=== PATIENT | male | born 1980 | race Caucasian/White ===

== ENCOUNTER 2018-04-04 11:47 | Emergency (ER) | payer MEDICARE, MEDICAID, SELFPAY ==
[2018-04-04 11:56] VITALS: BP 136/92; PULSE 72; RESP 16; TEMP 36.5; O2SAT 98; BMI 35.2
--- NOTE | 2018-04-04 12:20 | CT_ITS ---
CT head/brain wo con HISTORY: Fell this morning hit left side of for head on garbage can. Head pain.. Head injury. ITS.REASON: fall ORDERING PHYSICIAN: Butch Jimenes MD PATIENT AGE: 37 years COMPARISON: No previous studies. TECHNIQUE: Axial images obtained without contrast. Brain and bone windows reviewed. All CT scans at the facility use one or more dose reduction, viz: automated exposure control, ma/kV adjustment per patient size (including targeted exams where dose is matched to indication, i.e. head), or iterative reconstruction technique. FINDINGS: No acute intracranial findings. No midline shift, nor mass effect, . No intracranial hemorrhage, nor hydrocephalus, nor extra-axial fluid collection is evident. . Posterior fossa is unremarkable. . Soft tissue hematoma, swelling. Is seen at left supraorbital region, left forehead. Scant.Air within soft tissues laceration associated laceration occurring with this injury.. The underlying skull is intact. Supraorbital region and left frontal bone intact. Remainder the skull is intact. Unremarkable. The visualized paranasal sinuses are clear with no acute findings. Chronic or congenital wall thickening at the posterior left maxillary sinus noted.. Globes, visualized portions of orbits unremarkable The mastoid air cells are well-developed and clear. Middle ear clear. IACs symmetric & unremarkable. No mastoid effusion. -----IMPRESSION: No acute intracranial findings. Brain within normal limits. Soft tissue swelling and hematoma at the left supraorbital region noted.. Suspect minimal associated laceration Underlying skull intact
--- NOTE | 2018-04-04 12:20 | CT_ITS ---
CT cervical spine wo con Ordering Physician: Butch Jimenes MD Patient Age: 37 years: Male HISTORY: ITS.REASON: fallstruck head. Head and neck pain. TECHNIQUE: Helical CT scanning cervical spine. No IV contrast utilized. Axial sagittal and coronal reconstructions performed on CT workstation. All CT scans at this facility used one or more dose reduction techniques , viz: automatic exposure control, ma/Kv adjustment per patient's size, (including targeted exam where dose matched to the indication; i.e. head); or iterative reconstruction technique COMPARISON :None FINDINGS . No fracture nor subluxation evident Normal alignment on the sagittal images. Very mild Subtle dextrocurvature C-spine noted on coronal images however this may merely be positional as it was not seen on the hospitality ambassador view. Cervical spine appears intact with scant minor degenerative changes. Anterior marginal osteophytes at C4/5 most notable in this regard.Facets intact with normal relationships. Only question degenerative facet changes C6/7 and C7/T1 C1/C2 relationships appear normal. Dens Intact. . Prevertebral soft tissues satisfactory. Apices the lungs are clear. Scattered small to moderate reactive nodes throughout the neck. No significant adenopathy or masses. Thyroid gland slightly generous sized bilateral.. Left lobe measures 4.5 centimeters in length on coronal image 20. Apices the lungs are clear IMPRESSION: Cervical spine intact with no fracture nor subluxation Disc spaces well-maintained. Satisfactory alignment . Only trace scant early degenerative changes Early anterior marginal osteophyte C5-C6 noted in this regard. Generous, mildly prominent thyroid gland incidentally noted. Left lobe measures 4.5 cm length. Clinical correlation and follow-up will warranted.
--- NOTE | 2018-04-04 12:21 | [facility].EDFALL ---
ED Disposition Clinical Impression: Simple laceration of face, Penicillin allergy, DJD (degenerative joint disease) of cervical spine, Thyromegaly Disposition: Home, Self-Care Condition on Discharge: Fair Instructions: DI for Laceration Repair Additional Instructions: 1?keep the wound clean and dry. 2-apply daily Neosporin. 3-2 days wound check. 4-stitch removal in 7 days. 5-head injury instructions. 6-recommend outpatient thyroid evaluation for thyromegally. 7- Return as needed. Prescriptions: Sulfamethoxazole/Trimethoprim [Bactrim DS tablet] 1 tab PO BID #14 tab Referrals: Provider,Referral, [Primary Care Provider] - - Critical Care Critical Care Time: No Attestation: On 04/04/18, the high probability of a clinically significant, sudden or life threatening deterioration of the following system(s) required my full and direct attention, intervention and personal management. The time I documented below is in addition to time spent performing reported procedures but includes the following listed in this critical care notation. Medical Decision Making - Medical Records Medical records reviewed: Yes: I reviewed the patient's medical records. - Rodney Inquiry Pt receiving controlled substance: No Rodney was queried for this patient: No Vital Signs: 04/04/18 11:56 Temperature 97.7 F Temperature Source Oral Pulse Rate [Left Radial] 72 Respiratory Rate 16 Blood Pressure [Right Arm] 136/92 H Blood Pressure Mean [Right Arm] 106 Blood Pressure Source [Right Arm] Automatic Cuff Blood Pressure Position [Right Arm] Sitting 02 Sat by Pulse Oximetry 98 Oxygen Delivery Method Room Air - CT Data CT Scan: Head, C-Spine Time Received: 13:[address] Reviewed: Yes: I have viewed the radiologist's interpretation Preliminary Findings: Normal/NAD Findings Narrative: -----IMPRESSION: No acute intracranial findings. Brain within normal limits. Soft tissue swelling and hematoma at the left supraorbital region noted.. Suspect minimal associated laceration Underlying skull intact Fall HPI - General Chief Complaint: Wound/Laceration Stated Complaint: ao [id number] @1000 Lac to Eye Brow Time Seen by Provider: 04/04/18 12:00 Mode of Arrival: Ambulatory Limitations: No Limitations Description of Symptoms (Recalled from ER Triage Doc. by RN): to ed per pvt car with approx 6cm lac to lt side forehead this am 11am pt states pushing a garbage can tripped hitting head on can. pt denies any LOC. cpta none - History of Present Illness HPI Narrative: 37 years old white male resident of a halfway, he was taking the trash out when he slipped and fell hitting his head on the trash can. Salted on a 4 cm laceration of above the left eyebrow involving skin and subcutaneous tissue. The bleeding was controlled. The patient denies having blurry, vision double, neck pain, weakness involving the upper or lower extremities. The patient denies any other injuries. He was brought to the ED by his caregiver who denies any alcohol intake. MD complaint: fall Onset (ago): minute(s) Fall from: standing Fall witnessed: no Place fall occurred: home Loss of consciousness: none Prolonged down time: no Symptoms prior to fall: none Context: tripped/slipped Location of injury: head Severity: mild Quality: sharp Associated symptoms (after fall): headache - Related Data Home Medications Medication Instructions Recorded Confirmed benztropine 2 mg tablet 2 mg PO BID 02/25/18 04/04/18 benztropine 2 mg tablet 2 mg PO BID 02/25/18 04/04/18 divalproex 500 mg tablet,delayed 500 mg PO TID 02/25/18 04/04/18 release fenofibrate 150 mg capsule 150 mg PO DAILY 02/25/18 04/04/18 haloperidol 20 mg tablet 20 mg PO BID 02/25/18 04/04/18 multivitamin tablet 1 tab PO DAILY 02/25/18 04/04/18 omeprazole 20 mg capsule,delayed 20 mg PO DAILY 02/25/18 04/04/18 release sertraline 50 mg tablet 50 mg PO DAILY 02/25
--- NOTE | 2018-04-04 12:24 | ED_ITS ---
ED Disposition Clinical Impression: Simple laceration of face, Penicillin allergy, DJD (degenerative joint disease) of cervical spine, Thyromegaly Disposition: Home, Self-Care Condition on Discharge: Fair Instructions: DI for Laceration Repair Additional Instructions: 1?keep the wound clean and dry. 2-apply daily Neosporin. 3-2 days wound check. 4-stitch removal in 7 days. 5-head injury instructions. 6-recommend outpatient thyroid evaluation for thyromegally. 7- Return as needed. Prescriptions: Sulfamethoxazole/Trimethoprim [Bactrim DS tablet] 1 tab PO BID #14 tab Referrals: Provider,Referral, [Primary Care Provider] - - Critical Care Critical Care Time: No Attestation: On 04/04/18, the high probability of a clinically significant, sudden or life threatening deterioration of the following system(s) required my full and direct attention, intervention and personal management. The time I documented below is in addition to time spent performing reported procedures but includes the following listed in this critical care notation. Medical Decision Making - Medical Records Medical records reviewed: Yes: I reviewed the patient's medical records. - Rodney Inquiry Pt receiving controlled substance: No Rodney was queried for this patient: No Vital Signs: 04/04/18 11:56 Temperature 97.7 F Temperature Source Oral Pulse Rate [Left Radial] 72 Respiratory Rate 16 Blood Pressure [Right Arm] 136/92 H Blood Pressure Mean [Right Arm] 106 Blood Pressure Source [Right Arm] Automatic Cuff Blood Pressure Position [Right Arm] Sitting 02 Sat by Pulse Oximetry 98 Oxygen Delivery Method Room Air - CT Data CT Scan: Head, C-Spine Time Received: 13:[address] Reviewed: Yes: I have viewed the radiologist's interpretation Preliminary Findings: Normal/NAD Findings Narrative: -----IMPRESSION: No acute intracranial findings. Brain within normal limits. Soft tissue swelling and hematoma at the left supraorbital region noted.. Suspect minimal associated laceration Underlying skull intact Fall HPI - General Chief Complaint: Wound/Laceration Stated Complaint: ao [id number] @1000 Lac to Eye Brow Time Seen by Provider: 04/04/18 12:00 Mode of Arrival: Ambulatory Limitations: No Limitations Description of Symptoms (Recalled from ER Triage Doc. by RN): to ed per pvt car with approx 6cm lac to lt side forehead this am 11am pt states pushing a garbage can tripped hitting head on can. pt denies any LOC. cpta none - History of Present Illness HPI Narrative: 37 years old white male resident of a longterm, he was taking the trash out when he slipped and fell hitting his head on the trash can. Salted on a 4 cm laceration of above the left eyebrow involving skin and subcutaneous tissue. The bleeding was controlled. The patient denies having blurry, vision double, neck pain, weakness involving the upper or lower extremities. The patient denies any other injuries. He was brought to the ED by his caregiver who denies any alcohol intake. MD complaint: fall Onset (ago): minute(s) Fall from: standing Fall witnessed: no Place fall occurred: home Loss of consciousness: none Prolonged down time: no Symptoms prior to fall: none Context: tripped/slipped Location of injury: head Severity: mild Quality: sharp Associated sym
[2018-04-04 13:47] VITALS: BP 145/74; PULSE 78; RESP 16; TEMP 36.6; O2SAT 98
--- NOTE | 2018-04-04 13:48 | PC.NURSE ---
dsd applied to wound
== END 2018-04-04 13:48 | disposition home or self-care (01) ==
PROVIDERS: Emergency Provider Emergency Medicine
DX: S01.81XA Laceration without foreign body of other part of head, initial encounter (principal); Z88.0 Allergy status to penicillin; M50.30 Other cervical disc degeneration, unspecified cervical region; F17.210 Nicotine dependence, cigarettes, uncomplicated; F10.10 Alcohol abuse, uncomplicated; W01.198A Fall on same level from slipping, tripping and stumbling with subsequent striking against other object, initial encounter; Y92.019 Unspecified place in single-family (private) house as the place of occurrence of the external cause
CPT/HCPCS: 12013; 70450; 72125; 99282